=== PATIENT | male | born 1965 | race Caucasian/White ===

== ENCOUNTER 2020-04-17 11:46 | Emergency (ER) | payer OTHER, SELFPAY ==
[2020-04-17] VITALS (10 sets, daily range): BP systolic 116–135; BP diastolic 71–85; PULSE 71–93; RESP 14–20; TEMP 36.7–36.9; O2SAT 96–100
--- NOTE | ~2020-04-17 | CT_ITS ---
EXAMINATION: CTA chest PE protocol DATE: 04/17/2020 14:15 INDICATION: Shortness of breath. Presyncope. Positive d-dimer. TECHNIQUE: Computed tomography (CT) pulmonary angiogram of the chest was performed with 100 mL Omnipa que-350 intravenous contrast. Additional 3D reconstructions utilizing coronal maximum intensity proje ction (MIP) were performed. Automated exposure control and iterative reconstruction technique were em ployed. The dose-length product was 240.00 mGy-cm. COMPARISON: Chest radiograph dated 10/08/2016 FINDINGS: Excellent contrast opacification of the pulmonary arteries. There is mild streak artifact from dense contrast in the superior vena cava and right atrium. Minimal scattered respiratory motion artifact wh ich does not limit evaluation. No pulmonary embolism. Mild emphysema. Small posteriorly layering righ t pleural effusion with mild dependent atelectasis in the right lower lobe. Additional mild discoid a telectasis in the more anterior right lower lobe and right middle lobe. There is compressive atelecta sis at the medial aspect of the left lower lobe along side a large sliding-type hiatal hernia. There is fluid filling the mid to distal esophagus suggesting reflux. No pneumonia, pulmonary edema, pneumo thorax or left-sided pleural effusion. Heart size is normal. No pericardial effusion. Thoracic aorta is normal in caliber with no dissection. No pathologically enlarged thoracic lymphadenopathy. Diffuse hepatic steatosis. Visualized upper abdomen is unremarkable. Lateral right fourth-eighth rib fractur es with early nonbridging callus formation consistent with subacute chronicity. Mild thoracic spondyl osis with chronic anterior wedging of T7 and T8. IMPRESSION: 1. No pulmonary embolism. 2. Small right pleural effusion. 3. Large sliding-type hiatal hernia with fluid filling the mid to distal esophagus which could be rel ated to reflux. 4. Mild emphysema. 5. Subacute lateral right fourth-eighth rib fractures. Reviewed, dictated and finalized at location A. IMPRESSION: 1. No pulmonary embolism. 2. Small right pleural effusion. 3. Large sliding-type hiatal hernia with fluid filling the mid to distal esopha joaquín which could be related to reflux. 4. Mild emphysema. 5. Subacute lateral right fourth-eighth rib fractures.
--- NOTE | ~2020-04-17 | US_ITS ---
EXAMINATION: US right upper quadrant EXAM DATE: 04/17/2020 13:13 INDICATION: Epigastric pain. TECHNIQUE: Multiple grayscale and Doppler images of the abdomen right upper quadrant were obtained (jodi y a technologist who performed the scan) and subsequently reviewed. There is no prior study for david goel. FINDINGS: The pancreatic head and body are normal in appearance. The pancreatic tail is not visualized. The l iver has normal echogenicity and contour. There are no focal liver lesions identified. There is no evidence of intrahepatic biliary duct dilation. Portal venous flow was seen in the hepatopedal, nor mal direction and has normal Doppler waveform. No right-sided hydronephrosis. Common bile duct measures 4 mm, which is normal. The gallbladder wall is normal in thickness, with ex pected amount of distention. No sonographic evidence of pericholecystic fluid. There is no cholelit hiases. Technologist performing exam reports patient did not demonstrate sonographic Hoang's sign. Please note that this sign is less reliable in patients who have received pain medication. IMPRESSION: 1. Unremarkable abdominal ultrasound exam. Reviewed, dictated and finalized at location B.
--- NOTE | 2020-04-17 12:20 | ED.ABDPAIN ---
HPI - Abdominal Pain General Chief Complaint: Nausea/Vomiting/Diarrhea Stated Complaint: vomiting,cant eat Time Seen by Provider: 04/17/20 11:49 Source: patient Mode of arrival: ambulatory Limitations: no limitations History of Present Illness HPI narrative: 50 year old man comes in today complaining of epigastric and substernal chest pain which has been getting worse. Patient states that for 25 years she has had issues with epigastric pain and was managed to some degree by rented edema. After they took reading off the market he has had more pain. He went to his doctor's office this morning for a routine visit and his pain became very severe so his doctor sent him here for further workup. Dr. Joseph planned to do a liver and pancreas ultrasound today. He said some episodes of vomiting today but denies hematemesis, black stools, blood in stools, diarrhea, fever, syncope, new shortness of breath. The patient states he seems to bruise easier than he should and that he has shortness of breath with exertion. These are not new symptoms. Has a remote history of GI bleed (melena) after taking ibuprofen following a significant trauma. MD elicited complaint: abdominal pain and other ( substernal chest pain and epigastric) Pertinent past history: gastrointestinal bleeding Onset (ago): week(s) Pain Consistency: constant Location: epigastric Severity: severe Quality: sharp Radiation: chest Migration to: no migration Exacerbating factors: nothing Relieving factors: nothing Context: confirms history of similar episodes Associated symptoms: nausea and vomiting Related Data Allergies Allergy/AdvReac Type Severity Reaction Status Date / Time strawberry AdvReac Swelling Verified 04/17/20 12:29 ivory soap AdvReac Unknown Uncoded 04/17/20 12:29 Review of Systems Constitutional: Constitutional: Denies chills, Denies fever(s) and Denies weakness Eyes: Eyes: Denies change in vision and Reports photophobia ENT: Denies dysphagia, Denies nasal congestion and Denies sore throat Cardiovascular: Cardiovascular: Reports chest pain and Denies radiating jaw, neck or arm pain Respiratory: Respiratory: Denies chest congestion, Denies cough, Reports dyspnea and Denies wheezing Gastrointestinal: Gastrointestinal: Reports abdominal pain, Denies diarrhea, Reports nausea and Reports vomiting Genitourinary: Genitourinary: Denies hematuria, Denies dysuria and Denies urinary frequency Musculoskeletal: Musculoskeletal: Denies back pain, Denies arthralgias and Denies joint swelling Integumentary/Breasts: Skin/Breast: Denies pruritus, Denies erythema and Denies rash Neurologic: Denies vertigo, Denies dizziness, Denies syncope, Denies headache(s) and Denies focal weakness Hematologic/Lymphatic: Hematologic/Lymphatic: Denies easy bleeding and Denies easy bruising Allergic/Immunologic: Allergic/Immunologic: Denies lip swelling and Denies tongue swelling [facility] Past Medical History Medical History (Updated 04/17/20 @ 15:42 by Milo Mulligan MD) GI bleed after NSAIDS Social History Social History (Updated 04/17/20 @ 12:55 by Milo Mulligan MD) Smoking status: Current every day smoker Alcohol intake: current Alcohol use details: Two drinks daily Substance use: never Living arrangements: alone Gender identity (if verbalized by the patient): Male Exam Const: General: healthy appearing and alert Orientation/consciousness: patient oriented x3 Limitations: no limitations Other: moderate acute distress HENMT: Head: normal to inspection Ears: external ears normal, TM's normal bilaterally and EAC's normal General nose exam: Normal nares present Face and sinus: normal facial exam Mouth: Yes moist mucous membranes Throat: posterior oropharynx normal Eyes: Conjunctivae: conjunctivae normal Pupils: Equal, round and reactive pupils present EOM: EOMs intact bilaterally Resp: Effort & Inspection: normal respiratory effort and not
--- NOTE | 2020-04-17 12:25 | ECG_ITS ---
Measurements Intervals [place] Rate: 78 P: 91 MD: 176 QRS: 77 QRSD: 100 T: 50 QT: 420 QTc: 478 Interpretive Statements SINUS RHYTHM DELAYED PRECORDIAL R/S TRANSITION MINIMAL Q WAVES- INFERIOR LEADS BORDERLINE ST ABNORMALITY- LATERAL LEADS BORDERLINE ECG Electronically Signed On 04-17-2020 12:44:50 CDT by Lewis Ordoñez D.O.
[2020-04-17] MEDS: SODIUM CHLORIDE 0.9% IV 1,000 ML 999 ML (12:30)
[2020-04-17] MEDS: MAG HYDROX/ALUMINUM HYD/SIMETH 30 ML, PHENobarb/HYOSCY/ATROPINE/SCOP 32.4 MG, LIDOCAINE... PO (12:35)
[2020-04-17] MEDS: ONDANSETRON INJ 4 MG/2 ML VIAL IV PUSH (12:36)
[2020-04-17] MEDS: PANTOPRAZOLE SODIUM IV 40 MG VIAL IV PUSH (12:36)
[2020-04-17] MEDS: MORPHINE SULFATE (*CRX) 4 MG/ML INJ IV PUSH (12:36)
--- NOTE | 2020-04-17 12:53 | PC.NURSE ---
1250 pt taken to ultrasound
[2020-04-17 13:19] LABS: Basophils Absolute Auto 0.02 K/mm3 (0.00-0.10); Basophils Percent Auto 0.4 % (0.0-1.0); Eosinophils Absolute Auto 0.07 K/mm3 (0.02-0.50); Eosinophils Percent Auto 1.4 % (1.0-6.0); Hematocrit 25.5 % (40.0-54.0); Hemoglobin 7.3 g/dL (14.0-18.0); Immature Granulocyte Absolute 0.04 K/mm3 (0.00-0.00); Immature Granulocyte Percent A 0.8 % (0.0-0.0); Lymphocytes Absolute Auto 0.36 K/mm3 (1.10-4.50); Lymphocytes Percent Auto 7.1 % (18.0-42.0); Mean Corpuscular HGB Conc 28.6 g/dL (32.0-36.0); Mean Corpuscular Hemoglobin 19.7 pg (27.0-31.0); Mean Corpuscular Volume 68.7 fL (78.0-102.0); Monocytes Absolute Auto 0.25 K/mm3 (0.10-0.90); Monocytes Percent Auto 4.9 % (2.0-11.0); Neutrophils Absolute Auto 4.4 K/mm3 (1.7-7.2); Neutrophils Percent Auto 85.4 % (50.0-70.0); Platelet Count Result 375 K/mm3 (150-420); Red Blood Count 3.71 M/mm3 (4.70-6.10); Red Cell Distribution Width 20.7 % (11.6-14.4); White Blood Count 5.1 K/mm3 (4.8-10.8)
[2020-04-17 13:38] LABS: Alanine Aminotransferase 16 U/L (16-63); Albumin Level 2.7 g/dL (3.4-5.0); Alkaline Phosphatase 235 U/L (46-116); Anion Gap 7 mmol/L (8-16); Aspartate Amino Transferase 26 U/L (15-37); Bilirubin,Total 0.3 mg/dL (0.00-1.00); Blood Urea Nitrogen 3 mg/dL (7-18); Calcium 8.2 mg/dL (8.5-10.1); Carbon Dioxide 28 mmol/L (21-32); Chloride 104 mmol/L (98-108); Estimated CRCL calculation 78 ml/min; Estimated Glomerular Filt Rate > 60; Glucose 96 mg/dL (70-99); Lipase 333 U/L (73-393); Osmolality Calculated 284 mOsm/kg (285-295); Potassium 3.6 mmol/L (3.5-5.1); Sodium 139 mmol/L (136-145); Total Protein 6.2 g/dL (6.4-8.2)
[2020-04-17 13:39] LABS: Troponin I < 0.02 ng/mL (0.00-0.056)
[2020-04-17 13:43] LABS: INR 1.1; Partial Thromboplastin Time 28.7 SEC (22.3-31.6); Prothrombin Time 11.6 Seconds (9.64-11.0)
[2020-04-17 13:50] LABS: BNP 13 pg/mL (0-100); D Dimer 3.15 mg/L (0.19-0.50)
[2020-04-17 14:06] LABS: Occult Blood Negative (Negative)
--- NOTE | 2020-04-17 14:37 | PC.NURSE ---
[id number] See called for GI consult
[2020-04-17] MEDS: SODIUM CHLORIDE 0.9% IV 250 ML 30 ML IV CONT (16:44)
--- NOTE | 2020-05-16 21:00 | PC.NURSE ---
Late entry for NS 250 mls infused at 1840 following blood products
== END 2020-04-17 19:09 | disposition home or self-care (01) ==
PROVIDERS: Emergency Provider Emergency Medicine; PCP Internal Medicine
DX: R10.13 Epigastric pain (principal); D64.9 Anemia, unspecified; R06.02 Shortness of breath; R07.2 Precordial pain; K44.9 Diaphragmatic hernia without obstruction or gangrene; S22.41XD Multiple fractures of ribs, right side, subsequent encounter for fracture with routine healing; F10.10 Alcohol abuse, uncomplicated; F17.200 Nicotine dependence, unspecified, uncomplicated
CPT/HCPCS: 36415; 36430; 71275; 76705; 80053; 82272; 83605; 83690; 83880; 84484; 85025; 85380; 85610; 85730; 86850; 86900; 86901; 86920; 93005; 96361; 96374; 96375; 99283; 99284; A9270; C9113; J2270; J2405; J7030; J7050; P9016; Q9965